=== PATIENT | male | born 1950 | race Caucasian/White ===

== ENCOUNTER → 2016-08-03 | Outpatient (CLI) | payer OTHER, MEDICARE ==
--- NOTE | 2016-08-03 11:39 | ECHOF ---
Referral Reason:R06.02 sob MEASUREMENTS -------- HEIGHT: 182.9 cm WEIGHT: 82.1 kg BP: IVSd: 1.7 cm (0.6 - 1.1) LVIDd: 3.8 cm (3.9 - 5.3) LVPWd: 1.5 cm (0.6 - 1.1) IVSs: 2.0 cm LVIDs: 2.3 cm LVPWs: 2.0 cm Ao Diam: 2.8 cm (2.0 - 3.7) AV Cusp: 2.2 cm (1.5 - 2.6) LA Diam: 3.4 cm (2.7 - 3.8) MV EXCURSION: 19.783 mm (> 18.000) MV EF SLOPE: 113 mm/s (70 - 150) EPSS: 1.0 cm MV E Jean: 1.07 m/s MV DecT: 176 ms MV A Jean: 0.24 m/s MV E/A Ratio: 4.52 RAP: 5.00 mmHg RVSP: 47.82 mmHg FINDINGS -------- Sinus rhythm. BBB This was a technically good study. There is moderate concentric left ventricular hypertrophy. Overall left ventricular systolic function is mildly impaired with, an EF between 45 - 50 %. Inferiorlateral Hypokinesis The right ventricle is normal in size and function. The left atrium is normal in size. The right atrium is normal in size. The aortic valve is trileaflet, and appears structurally normal. No aortic stenosis or regurgitation. Mild mitral regurgitation is present. Xxhy-xd-[id number] tricuspid regurgitation present. There is mild pulmonary hypertension. The right ventricular systolic pressure, as measured by Doppler, is 47.82mmHg. Pulmonic valve appears structurally normal. The aortic root size is normal. The pericardium is normal. CONCLUSIONS -------- 1. Sinus rhythm. 2. The aortic valve is trileaflet, and appears structurally normal. No aortic stenosis or regurgitation. 3. Mild mitral regurgitation is present. 4. Fysz-pf-qsvmimtm tricuspid regurgitation present. 5. There is mild pulmonary hypertension. 6. The right ventricular systolic pressure, as measured by Doppler, is 47.82mmHg. 7. Pulmonic valve appears structurally normal. 8. The aortic root size is normal. 9. The pericardium is normal. 10. BBB 11. This was a technically good study. 12. There is moderate concentric left ventricular hypertrophy. 13. Overall left ventricular systolic function is mildly impaired with, an EF between 45 - 50 %. 14. Inferiorlateral Hypokinesis 15. The right ventricle is normal in size and function. 16. The left atrium is normal in size. 17. The right atrium is normal in size. COMPUTER ANIMATOR: Dannielle Lowry RDCS
--- NOTE | 2016-08-03 11:57 | ECHOS ---
DATE OF SERVICE: 08/03/2016 AGE: 66Y SEX: M HT: 70" WT: 181 lbs. Protocol Valentin: X Others: Stress Echo Stage: 1 Dur. of Exercise: 4:08 *Heart Rate Blood Pressure *Rest: 98 Rest: 157/111 * *Max. Achieved: 158 Maximum BP: 221/100 85% PMHR: 130 100% PMHR: 153 *METS: 5.2 INDICATIONS: MEDICATIONS: Lisinopril, simvastatin, aspirin, allopurinol. CLINICAL INFORMATION: Patient is known to have hypertension, hypercholesterolemia, denies any symptoms. History of hyperlipidemia, hypertension. Patient also has a complete left bundle branch block on the EKG. A resting ECG shows sinus rhythm, rate of 98 beats per minute, WA interval of 0.16, QRS 0.14, complete left bundle branch block with ST-T wave changes. Utilizing a standard Valentin protocol, a symptom-limited treadmill test was performed. Patient exercised for total of 4 minutes and 8 seconds, attained a peak heart rate of 158 beats per minute which is approximately 103% predicted maximum heart rate without any chest pain. Patient exercise test was terminated because of shortness of breath. Baseline images using Definity shows fair contractility, forced exercised images shows cavitary dilatation and baseline inferior wall, apical inferior wall and also apex, anterior apical akinesis consistent with possible triple-vessel disease with cavitary dilatation. Clinical correlation is suggested. IMPRESSION: 1. Abnormal stress echocardiogram with cavitary dilatation of ( ) apex and inferior cardozo with mid inferior and inferoapical cardozo, suggestive of underlying ischemic heart disease. These findings could be complicated by left bundle but definite cavitary dilatation is noted, highly suggestive of triple-vessel disease. Clinical correlation is suggested. 2. Patient has below-average level of cardiopulmonary fitness as indicated by O2 max and METs.
== END | disposition home or self-care (01) ==
LOC: RADNMMAIN 09:57
PROVIDERS: ATTEND Family Medicine
DX: R93.1 Abnormal findings on diagnostic imaging of heart and coronary circulation (principal); R06.02 Shortness of breath; I10 Essential (primary) hypertension; E78.00 Pure hypercholesterolemia, unspecified; Z79.82 Long term (current) use of aspirin; Z79.899 Other long term (current) drug therapy
CPT/HCPCS: 93350; 93017; 93306; Q9957

== ENCOUNTER 2016-08-21 08:04 | Day surgery (SDC) | payer OTHER, MEDICARE ==
[2016-08-20 11:23] VITALS: BMI 25.8
[~2016-08-21 08:04] MED LIST: ALPRAZolam 0.25 MG TAB PO PRN; ALPRAZolam 0.5 MG TAB PO PRN; ASPIRIN 325 MG TAB PO STA; ATORVASTATIN 80 MG TAB PO STA; NITROGLYCERIN SL TABS 0.4 MG TAB SUBLINGUAL PRN; SODIUM CHLORIDE 0.9% 1,000 ML in EMPTY BAG 1 BAG IV ONE
[2016-08-21 08:23] VITALS: RESP 16; TEMP 98.3
[2016-08-21 08:34] LABS: Basophils % (A) 1 %; CH 32.7; CHCM 34.6; Eosinophils # (A) 0.1 k/uL (0-0.7); Eosinophils % (A) 2 %; HCT 45.1 % (39.0-53.0); HDW 2.65; HGB 15.1 gm/dL (13.0-17.5); Luc # (Auto) 0.13; Luc % (Auto) 3; Lymphocytes # (A) 1.1 k/uL (1.0-4.8); Lymphocytes % (A) 23 %; MCH 31.7 pg (25.0-35.0); MCHC 33.4 g/dL (31.0-37.0); Mean Platelet Volume 6.5; Monocytes # (A) 0.4 k/uL (0-1.0); Monocytes % (A) 7 %; Neutrophils # (A) 3.3 k/uL (1.3-7.7); Neutrophils % (A) 65 %; RBC 4.75 m/uL (4.30-5.90); RDW 13.2 % (11.5-15.5); WBC 5.1 k/uL (3.8-10.6); WBC (Perox) 5.07
[2016-08-21 08:44] LABS: Anion Gap 8 mmol/L; Blood Urea Nitrogen 16 mg/dL (9-20); Calcium 9.9 mg/dL (8.4-10.2); Carbon Dioxide 28 mmol/L (22-30); Chloride 106 mmol/L (98-107); Glucose 119 mg/dL (74-99); Non-African American GFR(MDRD) >60 (>60 ml/min/1.73 sqM); Potassium 4.4 mmol/L (3.5-5.1); Sodium 142 mmol/L (137-145)
[2016-08-21] MEDS ORDERED: MIDAZOLAM 2 MG/2 ML VIAL IVP ONE (10:03)
[2016-08-21] MEDS ORDERED: LIDOCAINE 2% INJ 20 MG/ML SQ ONE (10:04)
[2016-08-21] MEDS ORDERED: HEPARIN SODIUM 1,000 UNIT/ML VIAL IV ONE (10:05)
[2016-08-21] MEDS: VERAPAMIL SYRINGE (5 MG/10 ML) INTRAARTER ONE ×2 (10:06→10:18)
[2016-08-21] MEDS ORDERED: IOHEXOL 350 MG/ML 125ML BOTTLE INJ ONE (10:17)
[2016-08-21] MEDS ORDERED: RX INFO: IV CONTRAST WAS GIVEN 1 EACH MISC MISCELLANE PRN (10:30)
[2016-08-21] MEDS ORDERED: SODIUM CHLORIDE 0.9% 1,000 ML IV SCH (10:30)
--- NOTE | 2016-08-21 11:07 | LTR ---
August 21, 2016 RE: Gamal Julio Dear Rena; Mr. Gamal Julio underwent a heart catheterization which showed normal coronaries with normal left ventricular systolic function. I want to thank you for allowing me to participate in his care and please do not hesitate to call if you have any questions or concerns. Sincerely, SAWYER ESCOBEDO MD
--- NOTE | 2016-08-21 11:08 | CC ---
DATE OF SERVICE: 08/21/2016 PERFORMING PHYSICIAN: Clayton Dunbar MD, boat painter. PROCEDURE PERFORMED: 1. Selective right and left coronary angiogram. 2. Left heart catheterization. 3. Left ventriculography. INDICATION: This is a pleasant 66-year-old gentleman with a known history of hypertension and dyslipidemia, who was found to have abnormal EKG with right bundle branch block. He underwent an echocardiogram which showed mildly impaired LV function with an ejection fraction of 45%. He underwent a stress test which showed inferior ischemia. He was brought today to undergo a heart catheterization. APPROACH: Right radial artery. COMPLICATIONS: None. LEVEL OF SEDATION: Moderate with a sedation length of 17 minutes. PROCEDURE DESCRIPTION: After obtaining an informed consent, the patient was brought to the cardiac catheterization laboratory technician. The right radial artery was cannulated using micropuncture technique, the micropuncture wire passed easily, then I placed 6 Somali sheath in the right radial artery. Subsequently, I did give the patient 2 mg of verapamil IA and 3000 units of heparin IV. After that, I did selective right and left coronary angiogram using JR4 and JL3.5 catheters. After that, I did left heart catheterization and LV gram using 6 Somali pigtail catheter. The procedure was completed without any complication. SELECTIVE CORONARY ANGIOGRAM: 1. The right coronary artery is a large-caliber vessel. It is a dominant vessel. It is angiographically normal. It bifurcates distally into PDA and PLV branches; both are angiographically normal. 2. The left main is angiographically normal. It bifurcates into the left circumflex and left anterior descending artery. 3. The left circumflex is a large-caliber vessel and it is a nondominant vessel. The proximal circumflex is angiographically normally. The mid circumflex is normal and gives rises into the first and second obtuse marginal branches; both are angiographically normally. The left circumflex distally is angiographically normal and gives rise into the third obtuse marginal branch, which appeared to be angiographically normal and the circumflex continues after that as a small-caliber vessel in the AV groove. 4. The left anterior descending artery; the proximal LAD is angiographically normal. The mid LAD is normal and gives rise into a medium size diagonal branch, which seems to be angiographically normal. The LAD distally is angiographically normal. HEMODYNAMICS: The left ventricle end-diastolic pressure was 12 mmHg and no gradient was identified across the aortic valve. Left ventriculography was performed in the MANDEL projection and using power injection. The left ventricular systolic function is low normal with EF about 50%. CONCLUSION: 1. Normal coronary angiogram. 2. Low normal left ventricular systolic function with an ejection fraction of 50%. POSTPROCEDURE MANAGEMENT: 1. Medical treatment. 2. Follow up with the patient.
[2016-08-21 16:00] VITALS: BP 134/78; PULSE 65
== END 2016-08-21 16:00 | disposition home or self-care (01) ==
LOC: CATHCVL 08:04
PROVIDERS: ATTEND Internal Medicine Interventional Cardiology
DX: R94.39 Abnormal result of other cardiovascular function study (principal); I10 Essential (primary) hypertension; E78.5 Hyperlipidemia, unspecified; I45.10 Unspecified right bundle-branch block; Z79.899 Other long term (current) drug therapy; Z88.0 Allergy status to penicillin
CPT/HCPCS: 93458; 99152; 80048; 85025; C1894; C1769; J2001; J2250; J1644; Q9967

== ENCOUNTER → 2020-10-21 | Outpatient (CLI) | payer OTHER, MEDICARE ==
[2020-10-21 10:50] LABS: African American GFR (CKD) >90 (>60 ml/min/1.73 sqM); Blood Urea Nitrogen 15 mg/dL (9-20); Non-African American GFR(CKD) 87 (>60 ml/min/1.73 sqM)
--- NOTE | 2020-10-21 11:34 | CT ---
EXAMINATION TYPE: CT angio neck DATE OF EXAM: 10/21/2020 COMPARISON: None HISTORY: Left sided carotid stenosis. CT DLP: 320.7 mGycm CONTRAST: CTA cervical carotids is performed and with IV Contrast, patient injected with 65ml mL of Isovue 370. Contrast CTA of the cervical carotids was performed 3-D reconstruction imaging obtained at a separate workstation. Right carotid system: Mild plaque is seen of the right common carotid artery. There is mild to moder ate plaque also noted at the carotid bulb. Estimated diameter reduction is approximately 60%. ECA is patent. Right vertebral artery appears unremarkable. Left carotid system: Mild plaque is seen of the left common carotid artery. There is severe plaque no merced at the left carotid bulb and proximal left ICA with soft and calcified components seen. Estimated diameter reduction is greater than 90%. ECA is patent. Left vertebral artery appears unremarkable. IMPRESSION: 1. Estimated diameter reduction Right ICA approximately 60% 2. Estimated diameter reduction Left ICA greater than 90%
== END | disposition home or self-care (01) ==
LOC: RADCTMAIN 10:19
PROVIDERS: ATTEND Internal Medicine Interventional Cardiology
DX: I65.22 Occlusion and stenosis of left carotid artery (principal)
CPT/HCPCS: 82565; 84520; 70498; 36415; Q9967

== ENCOUNTER 2021-03-26 06:27 | Inpatient (IN) | payer OTHER, MEDICARE ==
[2021-03-24 10:50] VITALS: BMI 25.8
[~2021-03-26 06:27] MED LIST changes: +ASPIRIN 325 MG TAB PO PRN; -ASPIRIN 325 MG TAB PO STA; +ASPIRIN 81 MG PO PRN; -ATORVASTATIN 80 MG TAB PO STA; +CLINDAMYCIN 600 MG in SODIUM CHLORIDE 0.9% 250 ML IRRIGATION PRN; +CLINDAMYCIN 900 MG in DEXTROSE 5% IN WATER 50 ML IVPB PRN; +LACTATED RINGERS 1,000 ML IV SCH
[2021-03-26] MEDS ORDERED: SODIUM CHLORIDE 0.9% 1,000 ML IV ONE (06:41)
[2021-03-26 06:52] VITALS: RESP 16; TEMP 98.4
[2021-03-26] MEDS ORDERED: .fentaNYL (PF) 50 MCG/ML 2 ML AMP IV PRN (07:00)
[2021-03-26 07:01] LABS: Basophils # (A) 0.1 k/uL (0-0.2); Basophils % (A) 1 %; Eosinophils # (A) 0.2 k/uL (0-0.7); Eosinophils % (A) 3 %; HCT 47.2 % (39.0-53.0); HGB 16.1 gm/dL (13.0-17.5); Lymphocytes # (A) 1.8 k/uL (1.0-4.8); Lymphocytes % (A) 26 %; Monocytes # (A) 0.5 k/uL (0-1.0); Monocytes % (A) 7 %; Neutrophils # (A) 4.3 k/uL (1.3-7.7); Neutrophils % (A) 62 %; Platelet Count 251 k/uL (150-450); RBC 4.87 m/uL (4.30-5.90); RDW 12.2 % (11.5-15.5); WBC 6.9 k/uL (3.8-10.6)
[2021-03-26 07:16] LABS: African American GFR (CKD) >90 (>60 ml/min/1.73 sqM); Anion Gap 9 mmol/L; Blood Urea Nitrogen 18 mg/dL (9-20); Carbon Dioxide 27 mmol/L (22-30); Chloride 102 mmol/L (98-107); Glucose 132 mg/dL (74-99); Non-African American GFR(CKD) 88 (>60 ml/min/1.73 sqM); Potassium 4.3 mmol/L (3.5-5.1); Sodium 138 mmol/L (137-145)
[2021-03-26] MEDS ORDERED: LIDOCAINE 1% INJ 10MG/ML (20 ML MDV) ONE (08:27)
[2021-03-26] MEDS ORDERED: HEPARIN SODIUM 1,000 UN/ML (10ML VL) ONE (08:42)
[2021-03-26] MEDS ORDERED: CLOPIDOGREL 75 MG TAB ONE (08:52)
[2021-03-26] MEDS ORDERED: LIDOCAINE 1% INJ 10MG/ML (20 ML MDV) SQ ONE (08:53)
[2021-03-26] MEDS ORDERED: CLOPIDOGREL 75 MG TAB PO ONE (08:55)
[2021-03-26] MEDS ORDERED: IOPAMIDOL-250 100ML BTL INTRAARTER ONE (09:18)
[2021-03-26] MEDS ORDERED: SODIUM CHLORIDE 0.9% 1,000 ML IV SCH (09:45)
[2021-03-26] MEDS ORDERED: amLODIPine 5 MG TAB PO SCH (12:45)
[2021-03-26] MEDS ORDERED: lisinopriL 20 MG TAB PO SCH (12:45)
[2021-03-26] MEDS ORDERED: METOPROLOL TARTRATE 12.5 MG TAB PO SCH (12:45)
--- NOTE | 2021-03-26 14:11 | IR ---
EXAMINATION TYPE: IR angio aortic arch DATE OF EXAM: 03/26/2021 COMPARISON: CT angiogram of the neck 10/21/2020 HISTORY: Carotid stenosis on the left Fluoroscopy support supplied to the referring clinician. See dictated report from cardiology, 136 in traoperative images, 5.5 minutes fluoroscopy time
--- NOTE | 2021-03-26 18:56 | AN ---
ANGIOGRAPHY REPORT DATE OF SERVICE: 03/26/2021 PERFORMING PHYSICIAN: Clayton Dunbar M.D. PROCEDURES PERFORMED: 1. Aortic arch angiogram. 2. Selective left carotid angiogram. 3. Selective right common femoral artery angiogram. 4. Ultrasound-guided access of the right common femoral artery. 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 He was brought today to undergo stenting of the left internal carotid artery. APPROACH: Right common femoral artery. COMPLICATIONS: None. LEVEL OF SEDATION: Moderate, with sedation length of 25 minutes. PROCEDURE DESCRIPTION: After obtaining informed consent, the patient was brought to the cardiac vat house laborer. The right common femoral artery was cannulated using micropuncture technique under ultrasound guidance. The micropuncture wire passed easily. Then I placed a micropuncture sheath over an 0.035 stiff Glidewire. Subsequently I pre-dilated using 6-Swedish dilator before I placed a 90 cm 6-Swedish shuttle sheath at the right common femoral artery over an 0.035 stiff Glidewire and the sheath was advanced over the wire all the way to the proximal descending aorta. That was performed under fluoroscopic guidance. At that point, anticoagulation was initiated using heparin, and the patient was given a total of 6000 units of heparin IV. After that I did an aortic arch angiogram using a 6-Swedish pigtail catheter which was placed over 0.035 stiff Glidewire in the ascending aorta. 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 Subsequently I did select the left common carotid artery using 0.035 stiff Glidewire with JB2 catheter. The catheter was advanced over the wire to the proximal left common carotid artery. Selective left common and left internal carotid as well as left external carotid angiogram was performed using hand injection through the JB2 catheter, and that was performed on MANDEL as well as CENTRAL [place] view as well as left lateral view. The procedure was completed without any complication. AORTIC ARCH AND SELECTIVE CAROTID ANGIOGRAM: 1. The aortic arch appeared to be a type 2 arch. 2. The left common carotid artery appeared to be angiographically normal and bifurcates into left internal and left external carotid arteries. 3. The left external carotid artery appeared to be angiographically normal. 4. The left internal carotid artery has a critical lesion that appeared to be in the range of 99.9%. The lesion is eccentric and calcified as well right after the bifurcation from the left common carotid artery. CONCLUSION: 1. Type 2 aortic arch. 2. 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 POST-PROCEDURE MANAGEMENT: Given the evidence of string sign on angiogram today, I advised that the patient might benefit from carotid endarterectomy. The reason I am saying that is probable difficulty advancing the filter wire across the lesion, which is extremely tight, calcified and eccentric as well. These findings were discussed with the patient as well as his with full understanding and agreement. I advised the patient to be seen by a surgeon while he is in the hospital, but the patient would like to go home and see the surgeon as an outpatient. With that being said, I am going to continue the aspirin and statin and also start the patient on Plavix as well. MMODL / IJN: [id number] /
[2021-03-26 19:43] VITALS: BP 152/72; PULSE 84
== END 2021-03-26 14:31 | disposition home or self-care (01) | DRG 68 ==
LOC: 2ORMAIN 06:27
PROVIDERS: ADMIT Internal Medicine Interventional Cardiology; ATTEND Internal Medicine Interventional Cardiology
PROC: B31P1ZZ Fluoroscopy of Thoraco-Abdominal Aorta using Low Osmolar Contrast (ICD-10-PCS; principal; 2021-03-26 08:30)
PROC: B3171ZZ Fluoroscopy of Left Internal Carotid Artery using Low Osmolar Contrast (ICD-10-PCS; 2021-03-26 08:30)
DX: I65.22 Occlusion and stenosis of left carotid artery (principal); I42.8 Other cardiomyopathies; Z20.822 Contact with and (suspected) exposure to COVID-19; I10 Essential (primary) hypertension; E78.5 Hyperlipidemia, unspecified; I65.21 Occlusion and stenosis of right carotid artery; Z79.82 Long term (current) use of aspirin; Z79.899 Other long term (current) drug therapy
CPT/HCPCS: 36222; 76937; 80048; 85025; 87635